=== PATIENT | female | born 1950 | race Caucasian/White ===

== ENCOUNTER 2020-03-01 03:55 | Emergency (ER) | payer MEDICARE, BC ==
[2020-03-01] MEDS ORDERED: Ondansetron 4 MG/2 ML SDV IVPUSH STA ×2 (04:25→06:15)
[2020-03-01] MEDS ORDERED: Morphine 4 MG/ML VIAL IVPUSH ONE (04:25)
[2020-03-01] MEDS ORDERED: Lactated Ringers 1,000 ML IV ONE (04:25)
[2020-03-01] MEDS ORDERED: HYDROmorphone 1 MG/ML Syringe IVPUSH ONE ×2 (04:41→06:15)
--- NOTE | 2020-03-01 04:41 | EDM.PDOC ---
ED HPI GENERAL MEDICAL PROBLEM - General Chief Complaint: Abdominal Pain Stated Complaint: Abdominal pain Time Seen by Provider: 03/01/20 04:38 Source of Information: Reports: Patient History Limitations: Reports: No Limitations - History of Present Illness INITIAL COMMENTS - FREE TEXT/NARRATIVE: This patient is a 69 year old female that presents to the ER. Patient reports that at about 6pm last night after supper, she started having lower abdominal pain all acrose the lower abdomen. She reports the pain radiated into her lower back. Patient reports the pain has been a constant cramping feeling, like she is constipated. She reports though that she never gets constipated. She reports that since last night, she has vomited a few times. She reports having a couple of bowel movements, but not diarrhea. She reports though she has not had any gas. She reports she normally has a lot of gas since starting her Metformin in August. Onset: Sudden Onset Date: 02/29/20 Onset Time: 18:00 Location: Reports: Abdomen, Back Severity: Severe Improves with: Reports: None Worsens with: Reports: None Associated Symptoms: Reports: Headaches (yesterday, but resolved. ), Nausea/Vomiting. Denies: Confusion, Chest Pain, Cough, cough w sputum, Diaphoresis, Fever/Chills, Loss of Appetite, Malaise, Rash, Seizure, Shortness of Breath, Syncope, Weakness Treatments [employer]: Reports: Acetaminophen, NSAIDS Abdomen Pain Score (Numeric/FACES): 9 - Related Data Allergies Allergy/AdvReac Type Severity Reaction Status Date / Time erythromycin base Allergy Nausea and Verified 03/01/20 04:13 [Erythromycin Base] Vomiting sulfamethoxazole Allergy Cannot Verified 03/01/20 04:13 [From Bactrim] Remember trimethoprim [From Bactrim] Allergy Cannot Verified 03/01/20 04:13 Remember Home Meds: Home Meds Aspirin [Low Dose Aspirin EC] 81 mg PO BEDTIME 09/02/13 [History] Calcium Carb, Citrate/Vit D3 [Calcium + D3 ER Tablet] 1 each PO DAILY 09/02/13 [History] Cholecalciferol (Vitamin D3) [Vitamin D3] 2,000 unit PO DAILY 09/02/13 [History] Glucosam/Chondr/Collagn/Hyalur [Glucosamine & Chondroitin Cap] 1 each PO DAILY 09/02/13 [History] Lisinopril/Hydrochlorothiazide [Lisinopril-Hctz 20-12.5 mg Tab] 0.5 each PO DAILY 09/02/13 [History] Magnesium 200 mg PO DAILY 09/02/13 [History] Metoprolol Succinate [Toprol XL 100mg] 100 mg PO DAILY 09/02/13 [History] Multivitamin [Daily Vitamin] 1 each PO DAILY 09/02/13 [History] Ubidecarenone [Co Q-10] 200 mg PO DAILY 09/02/13 [History] atorvaSTATin Calcium [Atorvastatin Calcium] 10 mg PO DAILY 09/02/13 [History] metFORMIN HCl [Metformin HCl] 500 mg PO DAILY 03/01/20 [History] Past Medical History Cardiovascular History: Reports: High Cholesterol, Hypertension - Past Surgical History Respiratory Surgical History: Reports: Lung Resection Female Surgical History: Reports: Hysterectomy Social & Family History - Tobacco Use Smoking Status *Q: Never Smoker - Caffeine Use Caffeine Use: Reports: Coffee ED ROS GENERAL - Review of Systems Review Of Systems: See Below Constitutional: Denies: Fever, Chills, Malaise, Weakness, Fatigue HEENT: Reports: No Symptoms. Denies: Ear Pain, Rhinitis, Sinus Problem, Throat Pain, Vertigo Respiratory: Reports: No Symptoms. Denies: Shortness of Breath, Wheezing, Pleuritic Chest Pain, Cough, Sputum Cardiovascular: Reports: No Symptoms. Denies: Chest Pain, Dyspnea on Exertion, Edema, Lightheadedness, Palpitations, Syncope Endocrine: Reports: No Symptoms GI/Abdominal: Reports: Abdominal Pain (with radiation into lower back), Distension, Nausea, Vomiting. Denies: Black Stool, Bloody Stool, Constipation, Diarrhea, Flatus : Reports: No Symptoms. Denies: Discharge, Dysuria, Flank Pain, Frequency, Hematuria, Incontinence, Pain, Urgency, Urinary Retention Musculoskeletal: Reports: No Symptoms Skin: Reports: No Symptoms Neurological: Reports: Headache (yesterday, but now resolved). Denies: Confusion, Dizziness, Numbness, Pre-Existing Deficit, Seizure, Syncope, Tingling, Tremors, Trouble Speaking, Difficulty Walking, Weakness, Gait Disturbance Psychiatric: Reports: No Symptoms Hematologic/Lymphatic: Reports: No Symptoms Immunologic: Reports: No Symptoms ED EXAM, GI/ABD - Physical Exam Exam: See Below Exam Limited By: No Limitations General Appearance: Alert, WD/WN, No Apparent Distress, Anxious, Other (in pain) Eyes: Bilateral: Normal Appearance Ears: Normal External Exam, Normal Canal, Hearing Grossly Normal, Normal TMs Nose: Normal Inspection, Normal Mucosa, No Blood Throat/Mouth: Normal Inspection, Normal Lips, Normal Teeth, Normal Gums, Normal Oropharynx, Normal Voice, No Airway Compromise Head: Atraumatic, Normocephalic Neck: Normal Inspection, Supple, Non-Tender, Full Range of Motion Respiratory/Chest: No Respiratory Distress, Lungs Clear, Normal Breath Sounds, No Accessory Muscle Use, Chest Non-Tender Cardiovascular: Normal Peripheral Pulses, Regular Rate, Rhythm, No Edema, No Gallop, No JVD, No Murmur, No Rub GI/Abdominal Exam: Distended, Tender (Diffuse. More tenderness RLQ, LLQ. ), Abnormal Bowel Sounds (Hypoactive RLQ, LLQ. ) Back Exam: Normal Inspection, Full Range of Motion. No: CVA Tenderness (L), CVA Tenderness (R) Extremities: Normal Inspection, Normal Range of Motion, Non-Tender, No Pedal Edema, Normal Capillary Refill Neurological: Alert, Oriented, Normal Cognition Psychiatric: Anxious Skin Exam: Warm, Dry, Intact, Normal Color, No Rash Lymphatic: No Adenopathy EKG INTERPRETATION EKG Date: 03/01/20 Time: 04:00 Rhythm: NSR Rate (Beats/Min): 91 [place]: Normal P-Wave: Present QRS: Normal ST-T: Normal QT: Prolonged Comparison: No Change (from 11/05) Course - Vital Signs Last Recorded V/S: Last Vital Signs Temp 98.1 F 03/01/20 04:09 Pulse 88 03/01/20 04:52 Resp 20 03/01/20 04:27 BP 131/79 03/01/20 04:52 Pulse Ox 96 03/01/20 04:27 - Orders/Labs/Meds Orders: Active Orders 24 hr Category Date Time Status EKG Documentation Completion [RC] STAT Care 03/01/20 04:00 Active Abdomen Pelvis w Cont [CT] Stat Exams 03/01/20 04:38 Taken CORONAVIRUS COVID-19 RAPID [MOLEC] Stat Lab 03/01/20 06:06 Ordered Labs: Laboratory Tests 03/01/20 03/01/20 03/01/20 Range/Units 04:10 04:15 04:15 WBC 4.6 L (5.0-10.0) 10^3/uL RBC 4.67 (4.00-5.50) 10^6/uL Hgb 14.4 (12.0-16.0) g/dL Hct 42.1 (37.0-47.0) % MCV 90.1 (82.0-94.0) fL MCH 30.8 (27.0-32.0) pg MCHC 34.2 (33.0-38.0) g/dL RDW Coeff of Loli 12.5 (11.0-15.0) % Plt Count 250 (150-400) 10^3/uL Neut % (Auto) 64.0 (35-85) % Lymph % (Auto) 31.9 (10-55) % [place] % (Auto) 3.5 (0-16) % Eos % (Auto) 0.4 (0-5) % Baso % (Auto) 0.2 (0-3) % Neut # (Auto) 2.95 (1.80-7.00) 10^3/uL Lymph # (Auto) 1.47 (1.00-4.80) 10^3/uL [place] # (Auto) 0.16 (0.00-0.80) 10^3/uL Eos # (Auto) 0.02 (0.00-0.45) 10^3/uL Baso # (Auto) 0.01 10^3/uL Sodium 137 (136-145) mEq/L Potassium 3.9 (3.5-5.0) mEq/L Chloride 100 (98-106) mEq/L Carbon Dioxide 25 (21-32) mmol/L BUN 20 H (7-18) mg/dL Creatinine 1.1 H (0.6-1.0) mg/dL Est Cr Clr Drug Dosing 44.05 mL/min Estimated GFR (MDRD) 49 L (>=60) mL/min Glucose 178 H D (75-99) mg/dL Lactic Acid (0.4-2.0) mmol/L Calcium 9.6 (8.4-10.1) mg/dL Total Bilirubin 0.9 (0.0-1.0) mg/dL AST 31 (15-37) U/L ALT 37 (12-78) U/L Alkaline Phosphatase 127 H (46-116) U/L C-Reactive Protein 2.1 H (0.2-0.8) mg/dL Total Protein 7.4 (6.4-8.2) g/dL Albumin 4.0 (3.4-5.0) g/dL Amylase 26 (25-115) U/L Lipase 76 (73-393) U/L Urine Color Yellow (YELLOW) Urine Appearance Clear (CLEAR) Urine pH 7.0 (4.5-8.0) Ur Specific [place] 1.025 H (1.003-1.020) Urine Protein Negative (NEGATIVE) mg/dL Urine Glucose (UA) Negative (NEGATIVE) mg/dL Urine Ketones Trace H (NEGATIVE) mg/dL Urine Occult Blood Negative (NEGATIVE) Urine Nitrite Negative (NEGATIVE) Urine Bilirubin Negative (NEGATIVE) Urine Urobilinogen 0.2 (0.2-1.0) EU/dL Ur Leukocyte Esterase Negative (NEGATIVE) 03/01/20 Range/Units 04:15 WBC (5.0-10.0) 10^3/uL RBC (4.00-5.50) 10^6/uL Hgb (12.0-16.0) g/dL Hct (37.0-47.0) % MCV (82.0-94.0) fL MCH (27.0-32.0) pg MCHC (33.0-38.0) g/dL RDW Coeff of Loli (11.0-15.0) % Plt Count (150-400) 10^3/uL Neut % (Auto) (35-85) % Lymph % (Auto) (10-55) % [place] % (Auto) (0-16) % Eos % (Auto) (0-5) % Baso % (Auto) (0-3) % Neut # (Auto) (1.80-7.00) 10^3/uL Lymph # (Auto) (1.00-4.80) 10^3/uL [place] # (Auto) (0.00-0.80) 10^3/uL Eos # (Auto) (0.00-0.45) 10^3/uL Baso # (Auto) 10^3/uL Sodium (136-145) mEq/L Potassium (3.5-5.0) mEq/L Chloride (98-106) mEq/L Carbon Dioxide (21-32) mmol/L BUN (7-18) mg/dL Creatinine (0.6-1.0) mg/dL Est Cr Clr Drug Dosing mL/min Estimated GFR (MDRD) (>=60) mL/min Glucose (75-99) mg/dL Lactic Acid 2.7 H (0.4-2.0) mmol/L Calcium (8.4-10.1) mg/dL Total Bilirubin (0.0-1.0) mg/dL AST (15-37) U/L ALT (12-78) U/L Alkaline Phosphatase (46-116) U/L C-Reactive Protein (0.2-0.8) mg/dL Total Protein (6.4-8.2) g/dL Albumin (3.4-5.0) g/dL Amylase (25-115) U/L Lipase (73-393) U/L Urine Color (YELLOW) Urine Appearance (CLEAR) Urine pH (4.5-8.0) Ur Specific [place] (1.003-1.020) Urine Protein (NEGATIVE) mg/dL Urine Glucose (UA) (NEGATIVE) mg/dL Urine Ketones (NEGATIVE) mg/dL Urine Occult Blood (NEGATIVE) Urine Nitrite (NEGATIVE) Urine Bilirubin (NEGATIVE) Urine Urobilinogen (0.2-1.0) EU/dL Ur Leukocyte Esterase (NEGATIVE) Meds: Medications Discontinued Medications Generic Name Dose Route Start Last Admin Trade Name Freq PRN Reason Stop Dose Admin Hydromorphone HCl 1 mg 03/01/20 04:41 03/01/20 04:46 Dilaudid IVPUSH 03/01/20 04:42 1 mg ONETIME ONE Administration Hydromorphone HCl 1 mg 03/01/20 06:15 Dilaudid IVPUSH 03/01/20 06:16 ONETIME ONE Lactated Ringer's 1,000 mls @ 999 mls/hr 03/01/20 04:25 03/01/20 04:33 Ringers, Lactated IV 03/01/20 05:25 999 mls/hr .BOLUS ONE Administration Iopamidol 100 ml 03/01/20 04:57 03/01/20 05:22 Isovue-370 (76%) IVPUSH 03/01/20 04:58 100 ml ONETIME ONE Administration Morphine Sulfate 4 mg 03/01/20 04:25 03/01/20 04:32 Morphine IVPUSH 03/01/20 04:26 4 mg ONETIME ONE Administration Ondansetron HCl 4 mg 03/01/20 04:25 03/01/20 04:32 Zofran IVPUSH 03/01/20 04:26 4 mg STAT STA Administration Ondansetron HCl 4 mg 03/01/20 06:15 Zofran IVPUSH 03/01/20 06:16 NOW STA - Radiology Interpretation Free Text/Narrative:: Abd/Pelvis CT: Acute appendicitis. No abscess. CT Results Date: 03/01/20 CT Results Time: 05:55 - Re-Assessments/Exams Free Text/Narrative Re-Assessment/Exam: 03/01/20 04:45 Patient reports the Morphine did not help her pain. Ordered Dilaudid. 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 Patient was told to start fiber twice a day. Patient reports that about 4-5 days ago she felt she had been having to loose stools, so she decreased her dosing to once a day. 03/01/20 06:08 I spoke to the patient. She would like to go to [facility]. I then called and spoke to Dr. Omer general surgeon. He has accepted the patient. Will transfer. 03/01/20 06:10 Patient explained the transfer and process. Patient is moaning in pain now, will give more pain medication and Zofran. Departure - Departure Time of Disposition: 06:12 Disposition: DC/Tfer to Acute Hospital 02 Condition: Serious Clinical Impression: Appendicitis Qualifiers: Appendicitis type: acute appendicitis Acute appendicitis type: unspecified acute appendicitis type Qualified Code(s): K35.80 - Unspecified acute appendicitis - Discharge Information *PRESCRIPTION DRUG MONITORING PROGRAM REVIEWED*: Not Applicable *COPY OF PRESCRIPTION DRUG MONITORING REPORT IN PATIENT ABDI: Not Applicable Referrals: Luis Sevilla MD [Primary Care Provider] - Forms: ED Department Discharge Sepsis Event Note (ED) - Evaluation Sepsis Screening Result: No Definite Risk - Focused Exam Vital Signs: Vital Signs Temp Pulse Resp BP Pulse Ox 03/01/20 04:52 88 131/79 03/01/20 04:27 92 20 121/67 96 03/01/20 04:09 98.1 F 95 20 102/66 98 - My Orders Last 24 Hours: My Active Orders 03/01/20 04:00 EKG Documentation Completion [RC] STAT 03/01/20 04:38 Abdomen Pelvis w Cont [CT] Stat 03/01/20 06:06 CORONAVIRUS COVID-19 RAPID [MOLEC] Stat - Assessment/Plan Last 24 Hours: My Active Orders 03/01/20 04:00 EKG Documentation Completion [RC] STAT 03/01/20 04:38 Abdomen Pelvis w Cont [CT] Stat 03/01/20 06:06 CORONAVIRUS COVID-19 RAPID [MOLEC] Stat Plan: PLEASE SEE RN NOTE FOR [facility] Patient being transferred to [facility]. Patient explained and agrees with risk vs benefits of transfer. She will be transferred via ground ambulance. The risk of transfer are mvc, , worsening of pain. The risks of staying in [place] is , worsening of condition, infection. The benefits of transfer are higher level of care, general surgeon. The benefits of staying in [place] is close to home.
[2020-03-01 04:52] VITALS: BP 131/79; PULSE 88
[2020-03-01] MEDS ORDERED: Iopamidol 755 Mg/ML 100 ML Bottle IVPUSH ONE (04:57)
[2020-03-01] MEDS ORDERED: Ondansetron 4 MG/2 ML SDV ONE (09:01)
[2020-03-01] MEDS ORDERED: HYDROmorphone 1 MG/ML Syringe ONE (09:01)
== END 2020-03-01 08:58 ==
LOC: CC.ED 03:55
DX: K35.80 Unspecified acute appendicitis (principal); E78.00 Pure hypercholesterolemia, unspecified; I10 Essential (primary) hypertension; Z79.899 Other long term (current) drug therapy; Z20.828 Contact with and (suspected) exposure to other viral communicable diseases; Z88.1 Allergy status to other antibiotic agents; Z88.2 Allergy status to sulfonamides; Z79.82 Long term (current) use of aspirin; Z79.84 Long term (current) use of oral hypoglycemic drugs
CPT/HCPCS: 36415; 74177; 80053; 81003; 82150; 83605; 83690; 85025; 86140; 93005; 96361; 96374; 96375; 96376; 99284; 99285; J1170; J2270; J2405; J7120; Q9967; U0002

== ENCOUNTER 2020-03-06 12:37 | Inpatient (IN) | payer MEDICARE, BC ==
[2020-03-06] MEDS ORDERED: Metoclopramide 10 MG/2 ML SDV IVPUSH ONE (15:06)
[2020-03-06] MEDS ORDERED: Docusate Sodium 100 MG Cap PO PRN (15:13)
[2020-03-06] MEDS: Pantoprazole 40 MG Vial IVPUSH SCH (15:57)
[2020-03-06] MEDS: Sodium Chloride 0.9% 1,000 ML IV SCH (15:57)
[2020-03-06 16:08] LABS: CHLORIDE,CL 100 mEq/L (98-106); SODIUM,NA 139 mEq/L (136-145)
[2020-03-06] MEDS: Enoxaparin 40 MG/0.4 ML Syringe SUBCUT SCH (18:07)
[2020-03-06] MEDS: Aspirin 81 MG Tab.EC PO SCH (19:52)
[2020-03-06] MEDS: Metoclopramide 10 MG/2 ML SDV IVPUSH PRN (21:13)
[2020-03-07] MEDS: Sodium Chloride 0.9% 1,000 ML IV SCH ×3 (00:21→18:22)
[2020-03-07] MEDS: Metoclopramide 10 MG/2 ML SDV IVPUSH PRN ×3 (03:49→18:22)
[2020-03-07] MEDS ORDERED: Amoxicillin/Clavulanate K 875-125 MG Tab PO SCH (08:00)
[2020-03-07] MEDS: Docusate Sodium 100 MG Cap PO SCH ×2 (08:12→19:35)
[2020-03-07] MEDS: Amoxicillin/Clavulanate K 875-125 MG Tab PO SCH ×2 (08:58→19:37)
[2020-03-07] MEDS: LISINOPRIL PO SCH (09:35)
[2020-03-07] MEDS: Metoprolol Succinate 100 MG Tab.ER**OWN MED PO SCH (09:35)
[2020-03-07] MEDS: HYDROCHLOROTHIAZIDE PO SCH (09:35)
[2020-03-07] MEDS ORDERED: metFORMIN 500 MG Tab PO SCH (09:45)
[2020-03-07] MEDS ORDERED: atorvaSTATin 10 MG Tab PO SCH (09:45)
[2020-03-07] MEDS: metFORMIN 500 MG Tab**OWN MED PO SCH (10:13)
[2020-03-07] MEDS ORDERED: atorvaSTATin 10 MG Tab**OWN MED PO SCH (10:15)
--- NOTE | 2020-03-07 10:56 | PN ---
DATE: 03/07/2020 S: Katiuska is a recent admission for ileus. She had a recent emergent laparoscopic appendectomy for a perforated appendix. She was in the hospital 5 days, then home I believe for 24 hours, and just cannot pass stools, having a lot of nausea, presented to our facility for that. We admitted her for ileus, and since admission, she has been afebrile. Her nausea has been markedly improved. She is not having any stools as of yet. O: GENERAL: On physical exam today, she is pleasant and cooperative. NECK: Supple. Veins flat. LUNGS: Clear. CARDIAC: Tones are regular. ABDOMEN: Appears soft, nondistended. There are bowel sounds in all quadrants, albeit hypoactive. No obvious tenderness to palpation throughout. LABORATORY DATA: Lab work from yesterday was reviewed. White count was elevated. Her electrolytes and renal functions are fine. She does have elevated LFTs with AST at 96, ALT 142, and alkaline phosphatase 551. ASSESSMENT: 1. POSTOPERATIVE ILEUS. 2. STATUS POST PERFORATED APPENDIX. 3. ELEVATED LIVER FUNCTION TESTS. P: We will get a right upper quadrant ultrasound today. She is on Augmentin, which she was sent home with from the hospital. Continue IV fluids, IV Protonix, and the Reglan has helped her nausea at this point. GLENN/BRYNN /[id number]
[2020-03-07 13:04] LABS: CHLORIDE,CL 103 mEq/L (98-106); SODIUM,NA 142 mEq/L (136-145)
[2020-03-07] MEDS: Enoxaparin 40 MG/0.4 ML Syringe SUBCUT SCH (16:18)
[2020-03-07] MEDS: Pantoprazole 40 MG Vial IVPUSH SCH (16:18)
[2020-03-07] MEDS: Aspirin 81 MG Tab.EC PO SCH (19:35)
[2020-03-08] MEDS: NS + KCl 20mEq/L 1,000 ML IV SCH ×3 (00:34→22:32)
[2020-03-08] MEDS: Metoclopramide 10 MG/2 ML SDV IVPUSH PRN ×4 (00:34→18:40)
[2020-03-08] MEDS: Docusate Sodium 100 MG Cap PO SCH ×2 (07:38→20:22)
[2020-03-08 07:39] LABS: CHLORIDE,CL 105 mEq/L (98-106); SODIUM,NA 143 mEq/L (136-145)
[2020-03-08] MEDS: Amoxicillin/Clavulanate K 875-125 MG Tab PO SCH ×2 (07:39→20:22)
[2020-03-08] MEDS: metFORMIN 500 MG Tab**OWN MED PO SCH (07:39)
[2020-03-08] MEDS: HYDROCHLOROTHIAZIDE PO SCH (07:40)
[2020-03-08] MEDS: Metoprolol Succinate 100 MG Tab.ER**OWN MED PO SCH (07:40)
[2020-03-08] MEDS: LISINOPRIL PO SCH (07:40)
--- NOTE | 2020-03-08 10:05 | PCM.PN ---
- General Info Date of Service: 03/08/20 Admission Dx/Problem (Free Text): abd pain, ileus, elevated LFT Functional Status: Reports: Pain Controlled, Tolerating Diet, Ambulating, Urinating - Review of Systems General: Reports: No Symptoms. Denies: Fever, Weakness HEENT: Reports: No Symptoms Pulmonary: Reports: No Symptoms. Denies: Shortness of Breath, Cough Cardiovascular: Reports: No Symptoms Gastrointestinal: Reports: Nausea. Denies: Abdominal Pain, Constipation, Diarrhea, Vomiting Genitourinary: Reports: No Symptoms Musculoskeletal: Reports: No Symptoms Skin: Reports: No Symptoms Neurological: Reports: No Symptoms Psychiatric: Reports: No Symptoms - Patient Data Vitals - Most Recent: Last Vital Signs Temp 37.1 C 03/08/20 07:33 Pulse 69 03/08/20 07:40 Resp 18 03/08/20 07:33 BP 147/58 H 03/08/20 07:40 Pulse Ox 100 03/08/20 07:33 Weight - Most Recent: 81.012 kg I&O - Last 24 Hours: Intake & Output 03/07/20 03/08/20 03/08/20 22:59 06:59 14:59 Intake Total 2820 565 Output Total 2600 2400 Balance 220 -1835 Lab Results Last 24 Hours: Laboratory Results - last 24 hr 03/07/20 03/07/20 03/08/20 Range/Units 12:44 12:44 06:55 WBC 15.6 H 14.0 H (5.0-10.0) 10^3/uL RBC 4.21 4.12 (4.00-5.50) 10^6/uL Hgb 12.7 12.4 (12.0-16.0) g/dL Hct 37.7 36.9 L (37.0-47.0) % MCV 89.5 89.6 (82.0-94.0) fL MCH 30.2 30.1 (27.0-32.0) pg MCHC 33.7 33.6 (33.0-38.0) g/dL RDW Coeff of Loli 13.1 13.2 (11.0-15.0) % Plt Count 330 341 (150-400) 10^3/uL Neut % (Auto) 61.1 (35-85) % Lymph % (Auto) 25.7 (10-55) % [place] % (Auto) 11.6 (0-16) % Eos % (Auto) 1.3 (0-5) % Baso % (Auto) 0.3 (0-3) % Neut # (Auto) 9.56 H (1.80-7.00) 10^3/uL Lymph # (Auto) 4.02 (1.00-4.80) 10^3/uL [place] # (Auto) 1.81 H (0.00-0.80) 10^3/uL Eos # (Auto) 0.20 (0.00-0.45) 10^3/uL Baso # (Auto) 0.04 10^3/uL Add Manual Diff Yes Neutrophils % (Manual) 44 (35-85) % Lymphocytes % (Manual) 49 (21-55) % Monocytes % (Manual) 5 (2-12) % Eosinophils % (Manual) 2 (0-5) % Absolute Neutrophils 6.16 (1.80-7.00) 10^3/uL Lymphocytes # (Manual) 6.86 H (1.00-4.80) 10^3/uL Monocytes # (Manual) 0.70 (0.00-0.80) 10^3/uL Eosinophils # (Manual) 0.28 (0.00-0.45) 10^3/uL Sodium 142 (136-145) mEq/L Potassium 3.2 L (3.5-5.0) mEq/L Chloride 103 (98-106) mEq/L Carbon Dioxide 27 (21-32) mmol/L BUN 7 (7-18) mg/dL Creatinine 0.8 (0.6-1.0) mg/dL Est Cr Clr Drug Dosing 60.56 mL/min Estimated GFR (MDRD) > 60 (>=60) mL/min Glucose 112 H (75-99) mg/dL POC Glucose (75-105) mg/dl Calcium 8.8 (8.4-10.1) mg/dL Magnesium (1.8-2.4) mg/dL Total Bilirubin 0.4 (0.0-1.0) mg/dL AST 76 H (15-37) U/L ALT 140 H (12-78) U/L Alkaline Phosphatase 521 H (46-116) U/L C-Reactive Protein 1.8 H (0.2-0.8) mg/dL Total Protein 7.2 (6.4-8.2) g/dL Albumin 3.1 L (3.4-5.0) g/dL 03/08/20 03/08/20 Range/Units 06:55 07:38 WBC (5.0-10.0) 10^3/uL RBC (4.00-5.50) 10^6/uL Hgb (12.0-16.0) g/dL Hct (37.0-47.0) % MCV (82.0-94.0) fL MCH (27.0-32.0) pg MCHC (33.0-38.0) g/dL RDW Coeff of Loli (11.0-15.0) % Plt Count (150-400) 10^3/uL Neut % (Auto) (35-85) % Lymph % (Auto) (10-55) % [place] % (Auto) (0-16) % Eos % (Auto) (0-5) % Baso % (Auto) (0-3) % Neut # (Auto) (1.80-7.00) 10^3/uL Lymph # (Auto) (1.00-4.80) 10^3/uL [place] # (Auto) (0.00-0.80) 10^3/uL Eos # (Auto) (0.00-0.45) 10^3/uL Baso # (Auto) 10^3/uL Add Manual Diff Neutrophils % (Manual) (35-85) % Lymphocytes % (Manual) (21-55) % Monocytes % (Manual) (2-12) % Eosinophils % (Manual) (0-5) % Absolute Neutrophils (1.80-7.00) 10^3/uL Lymphocytes # (Manual) (1.00-4.80) 10^3/uL Monocytes # (Manual) (0.00-0.80) 10^3/uL Eosinophils # (Manual) (0.00-0.45) 10^3/uL Sodium 143 (136-145) mEq/L Potassium 3.0 L (3.5-5.0) mEq/L Chloride 105 (98-106) mEq/L Carbon Dioxide 26 (21-32) mmol/L BUN 5 L (7-18) mg/dL Creatinine 0.7 (0.6-1.0) mg/dL Est Cr Clr Drug Dosing 69.21 mL/min Estimated GFR (MDRD) > 60 (>=60) mL/min Glucose 97 (75-99) mg/dL POC Glucose 95 (75-105) mg/dl Calcium 8.4 (8.4-10.1) mg/dL Magnesium 2.0 (1.8-2.4) mg/dL Total Bilirubin 0.5 (0.0-1.0) mg/dL AST 62 H (15-37) U/L ALT 125 H (12-78) U/L Alkaline Phosphatase 434 H (46-116) U/L C-Reactive Protein 1.0 H (0.2-0.8) mg/dL Total Protein 7.0 (6.4-8.2) g/dL Albumin 3.0 L (3.4-5.0) g/dL Med Orders - Current: Current Medications Amoxicillin/Clavulanate Potassium (Augmentin 875 Mg/125 Mg) 1 tab PO BID [facility] Stop: 03/10/20 23:59 Last Admin: 03/08/20 07:39 Dose: 1 tab Documented by: Aspirin (Halfprin) 81 mg PO BEDTIME [facility] Last Admin: 03/07/20 19:35 Dose: 81 mg Documented by: Docusate Sodium (Colace) 100 mg PO BID [facility] Last Admin: 03/08/20 07:38 Dose: 100 mg Documented by: Enoxaparin Sodium (Lovenox) 40 mg SUBCUT Q24H [facility] Last Admin: 03/07/20 16:18 Dose: 40 mg Documented by: Potassium Chloride/Sodium Chloride (Normal Saline With 20 Meq Kcl) 1,000 mls @ 100 mls/hr IV ASDIRECTED [facility] Last Admin: 03/08/20 00:34 Dose: 100 mls/hr Documented by: Metformin HCl (Glucophage) 500 mg PO DAILY [facility] Last Admin: 03/08/20 07:39 Dose: 500 mg Documented by: Metoclopramide HCl (Reglan) 10 mg IVPUSH Q6H PRN PRN Reason: Nausea Last Admin: 03/08/20 06:30 Dose: 10 mg Documented by: Metoprolol Succinate (Toprol Xl) 100 mg PO DAILY [facility] Last Admin: 03/08/20 07:40 Dose: 100 mg Documented by: Lisinopril/Hydrochlorothiazide 20-12.5 MgOwn Med* * 0.5 each PO DAILY [facility] Last Admin: 03/08/20 07:40 Dose: 0.5 each Documented by: Pantoprazole Sodium (Protonix Iv) 40 mg IVPUSH Q24H [facility] Last Admin: 03/07/20 16:18 Dose: 40 mg Documented by: Discontinued Medications Amoxicillin/Clavulanate Potassium (Augmentin 875 Mg/125 Mg) 1 tab PO BID [facility] Last Admin: 03/07/20 08:54 Dose: Not Given Documented by: Atorvastatin Calcium (Lipitor) 10 mg PO DAILY [facility] Last Admin: 03/07/20 10:13 Dose: Not Given Documented by: Atorvastatin Calcium (Lipitor) 10 mg PO 03/07/20 [facility] Stop: 03/07/20 10:16 Last Admin: 03/07/20 10:13 Dose: 10 mg Documented by: Docusate Sodium (Colace) 100 mg PO BID PRN PRN Reason: Constipation Sodium Chloride (Normal Saline) 1,000 mls @ 125 mls/hr IV ASDIRECTED [facility] Last Admin: 03/07/20 18:22 Dose: 125 mls/hr Documented by: Metformin HCl (Glucophage) 500 mg PO DAILY [facility] Last Admin: 03/07/20 10:13 Dose: Not Given Documented by: Metoclopramide HCl (Reglan) 10 mg IVPUSH ONETIME ONE Stop: 03/06/20 15:07 Last Admin: 03/06/20 15:11 Dose: 10 mg Documented by: - Exam General: Alert, Oriented, Cooperative, No Acute Distress Neck: Supple Lungs: Clear to Auscultation, Normal Respiratory Effort Cardiovascular: Regular Rate, Regular Rhythm GI/Abdominal Exam: Normal Bowel Sounds, Soft, Non-Tender, No Organomegaly, No Distention, No Abnormal Bruit Back Exam: Normal Inspection, Full Range of Motion Extremities: Normal Inspection, Normal Range of Motion, Non-Tender, Normal Capillary Refill Peripheral Pulses: 2+: Radial (L) Skin: Warm, Dry, Intact Neurological: No New Focal Deficit Psy/Mental Status: Alert, Normal Affect, Normal Mood Sepsis Event Note - Evaluation Sepsis Screening Result: No Definite Risk - Focused Exam Vital Signs: Vital Signs Temp Pulse Pulse Resp BP BP Pulse Ox 03/08/20 07:40 69 147/58 H 03/08/20 07:33 37.1 C 69 18 147/58 H 100 03/08/20 04:00 37.1 C 70 16 134/89 97 03/07/20 23:59 37.1 C 70 16 155/59 H 98 Date Exam was Performed: 03/08/20 Time Exam was Performed: 09:59 - Problem List & Annotations (1) Abdominal pain SNOMED Code(s): 66497631 Code(s): R10.9 - UNSPECIFIED ABDOMINAL PAIN Status: Acute Priority: High Current Visit: Yes Qualifiers: Abdominal location: generalized Qualified Code(s): R10.84 - Generalized abdominal pain (2) Ileus SNOMED Code(s): 721682330 Code(s): K56.7 - ILEUS, UNSPECIFIED Status: Acute Priority: Medium Current Visit: Yes (3) Elevated LFTs SNOMED Code(s): 197881283, 953895446 Code(s): R79.89 - OTHER SPECIFIED ABNORMAL FINDINGS OF BLOOD CHEMISTRY Status: Acute Priority: Medium Current Visit: Yes - Problem List Review Problem List Initiated/Reviewed/Updated: Yes - Plan Plan:: will increase diet and give laxative if needed, did have a small formed BM this am, will continue current tx plan and plan dc in am if improving
--- NOTE | 2020-03-08 12:31 | PCM.HP.2 ---
H&P History of Present Illness - General Date of Service: 03/08/20 Admit Problem/Dx: abd pain, ileus, elevated LFT Source of Information: Patient History Limitations: Reports: No Limitations - History of Present Illness Initial Comments - Free Text/Narative: abd pain and distension with nausea, was admitted on , advised is not much better, did have a small formed stool this am, will change from observation to admission. Onset of Symptoms: Reports: Gradual Duration of Symptoms: Reports: Day(s): Location: Reports: Abdomen Severity: Mild Improves with: Reports: None Worsens with: Reports: None Associated Symptoms: Reports: Nausea/Vomiting (nausea, no vomiting). Denies: Chest Pain, Cough, Fever/Chills, Shortness of Breath - Related Data Allergies/Adverse Reactions: Allergies Allergy/AdvReac Type Severity Reaction Status Date / Time erythromycin base Allergy Nausea and Verified 03/06/20 14:25 [Erythromycin Base] Vomiting sulfamethoxazole Allergy Cannot Verified 03/06/20 14:25 [From Bactrim] Remember trimethoprim [From Bactrim] Allergy Cannot Verified 03/06/20 14:25 Remember Home Medications: Home Meds Aspirin [Low Dose Aspirin EC] 81 mg PO BEDTIME 09/02/13 [History] Calcium Carb, Citrate/Vit D3 [Calcium + D3 ER Tablet] 1 each PO DAILY 09/02/13 [History] Cholecalciferol (Vitamin D3) [Vitamin D3] 2,000 unit PO DAILY 09/02/13 [History] Glucosam/Chondr/Collagn/Hyalur [Glucosamine & Chondroitin Cap] 1 each PO DAILY 09/02/13 [History] Lisinopril/Hydrochlorothiazide [Lisinopril-Hctz 20-12.5 mg Tab] 0.5 each PO DAILY 09/02/13 [History] Magnesium 200 mg PO DAILY 09/02/13 [History] Metoprolol Succinate [Toprol XL 100mg] 100 mg PO DAILY 09/02/13 [History] Multivitamin [Daily Vitamin] 1 each PO DAILY 09/02/13 [History] Ubidecarenone [Co Q-10] 200 mg PO DAILY 09/02/13 [History] atorvaSTATin Calcium [Atorvastatin Calcium] 10 mg PO DAILY 09/02/13 [History] metFORMIN HCl [Metformin HCl] 500 mg PO DAILY 03/01/20 [History] Amoxicillin/Clavulanate K [Augmentin 875-125 MG] 1 tab PO BID 03/06/20 [History] ondansetron HCL [Ondansetron HCl] 4 mg PO Q4H PRN 03/06/20 [History] Past Medical History HEENT History: Reports: Hard of Hearing Cardiovascular History: Reports: High Cholesterol, Hypertension Respiratory History: Reports: SOB, Other (See Below) Other Respiratory History: pulmonary nodule Genitourinary History: Reports: UTI, Recurrent, Other (See Below) Other Genitourinary History: nocturia [employer] History: Reports: , Other (See Below) Other OB/BYN History: ovarian mass Musculoskeletal History: Reports: Arthritis Psychiatric History: Reports: Anxiety, Depression Endocrine/Metabolic History: Reports: Multinodular Thyroid, Vitamin D Deficiency, Other (See Below) Other Endocrine/Metabolic History: prediabetic Dermatologic History: Reports: Other (See Below) Other Dermatologic History: inflammed seborrheic keratosis - Past Surgical History HEENT Surgical History: Reports: None Cardiovascular Surgical History: Reports: None Respiratory Surgical History: Reports: Lung Resection GI Surgical History: Reports: Appendectomy Female Surgical History: Reports: Hysterectomy Endocrine Surgical History: Reports: None Musculoskeletal Surgical History: Reports: None Oncologic Surgical History: Reports: Biopsy of Breast, Lobectomy Dermatological Surgical History: Reports: None Social & Family History - Family History Family Medical History: Noncontributory - Tobacco Use Smoking Status *Q: Never Smoker - Caffeine Use Caffeine Use: Reports: Coffee - Recreational Drug Use Recreational Drug Use: No H&P Review of Systems - Review of Systems: Review Of Systems: See Below General: Reports: No Symptoms. Denies: Fever, Chills, Weakness HEENT: Reports: No Symptoms Pulmonary: Reports: No Symptoms Cardiovascular: Reports: No Symptoms Gastrointestinal: Reports: Constipation, Distension, Nausea. Denies: Abdominal Pain, Vomiting Genitourinary: Reports: No Symptoms Musculoskeletal: Reports: No Symptoms. Denies: Neck Pain, Back Pain Skin: Reports: No Symptoms Psychiatric: Reports: No Symptoms Neurological: Reports: No Symptoms Exam - Exam Exam: See Below - Vital Signs Vital Signs: Last Vital Signs Temp 36.6 C 03/08/20 12:00 Pulse 89 03/08/20 12:00 Resp 18 03/08/20 12:00 BP 163/69 H 03/08/20 12:00 Pulse Ox 98 03/08/20 12:00 Weight: 81.012 kg - Exam General: Alert, Oriented, Cooperative Neck: Supple, Trachea Midline Lungs: Clear to Auscultation, Normal Respiratory Effort Cardiovascular: Regular Rate, Regular Rhythm GI/Abdominal Exam: Soft, Non-Tender, Distended Back Exam: Normal Inspection, Full Range of Motion. No: CVA Tenderness (L), CVA Tenderness (R) Extremities: Normal Inspection, Normal Range of Motion, Non-Tender, Normal Capillary Refill Peripheral Pulses: 2+: Radial (L) Skin: Warm, Dry, Intact Neuro Extensive - Mental Status: Alert, Oriented x3, Normal Mood/Affect, Normal Cognition, Memory Intact Neuro Extensive - Motor, Sensory, Reflexes: Normal Gait Psychiatric: Alert, Normal Affect, Normal Mood - Patient Data Lab Results Last 24 hrs: Laboratory Results - last 24 hr 03/07/20 03/07/20 03/08/20 Range/Units 12:44 12:44 06:55 WBC 15.6 H 14.0 H (5.0-10.0) 10^3/uL RBC 4.21 4.12 (4.00-5.50) 10^6/uL Hgb 12.7 12.4 (12.0-16.0) g/dL Hct 37.7 36.9 L (37.0-47.0) % MCV 89.5 89.6 (82.0-94.0) fL MCH 30.2 30.1 (27.0-32.0) pg MCHC 33.7 33.6 (33.0-38.0) g/dL RDW Coeff of Loli 13.1 13.2 (11.0-15.0) % Plt Count 330 341 (150-400) 10^3/uL Neut % (Auto) 61.1 (35-85) % Lymph % (Auto) 25.7 (10-55) % [place] % (Auto) 11.6 (0-16) % Eos % (Auto) 1.3 (0-5) % Baso % (Auto) 0.3 (0-3) % Neut # (Auto) 9.56 H (1.80-7.00) 10^3/uL Lymph # (Auto) 4.02 (1.00-4.80) 10^3/uL [place] # (Auto) 1.81 H (0.00-0.80) 10^3/uL Eos # (Auto) 0.20 (0.00-0.45) 10^3/uL Baso # (Auto) 0.04 10^3/uL Add Manual Diff Yes Neutrophils % (Manual) 44 (35-85) % Lymphocytes % (Manual) 49 (21-55) % Monocytes % (Manual) 5 (2-12) % Eosinophils % (Manual) 2 (0-5) % Absolute Neutrophils 6.16 (1.80-7.00) 10^3/uL Lymphocytes # (Manual) 6.86 H (1.00-4.80) 10^3/uL Monocytes # (Manual) 0.70 (0.00-0.80) 10^3/uL Eosinophils # (Manual) 0.28 (0.00-0.45) 10^3/uL Sodium 142 (136-145) mEq/L Potassium 3.2 L (3.5-5.0) mEq/L Chloride 103 (98-106) mEq/L Carbon Dioxide 27 (21-32) mmol/L BUN 7 (7-18) mg/dL Creatinine 0.8 (0.6-1.0) mg/dL Est Cr Clr Drug Dosing 60.56 mL/min Estimated GFR (MDRD) > 60 (>=60) mL/min Glucose 112 H (75-99) mg/dL POC Glucose (75-105) mg/dl Calcium 8.8 (8.4-10.1) mg/dL Magnesium (1.8-2.4) mg/dL Total Bilirubin 0.4 (0.0-1.0) mg/dL AST 76 H (15-37) U/L ALT 140 H (12-78) U/L Alkaline Phosphatase 521 H (46-116) U/L C-Reactive Protein 1.8 H (0.2-0.8) mg/dL Total Protein 7.2 (6.4-8.2) g/dL Albumin 3.1 L (3.4-5.0) g/dL 03/08/20 03/08/20 Range/Units 06:55 07:38 WBC (5.0-10.0) 10^3/uL RBC (4.00-5.50) 10^6/uL Hgb (12.0-16.0) g/dL Hct (37.0-47.0) % MCV (82.0-94.0) fL MCH (27.0-32.0) pg MCHC (33.0-38.0) g/dL RDW Coeff of Loli (11.0-15.0) % Plt Count (150-400) 10^3/uL Neut % (Auto) (35-85) % Lymph % (Auto) (10-55) % [place] % (Auto) (0-16) % Eos % (Auto) (0-5) % Baso % (Auto) (0-3) % Neut # (Auto) (1.80-7.00) 10^3/uL Lymph # (Auto) (1.00-4.80) 10^3/uL [place] # (Auto) (0.00-0.80) 10^3/uL Eos # (Auto) (0.00-0.45) 10^3/uL Baso # (Auto) 10^3/uL Add Manual Diff Neutrophils % (Manual) (35-85) % Lymphocytes % (Manual) (21-55) % Monocytes % (Manual) (2-12) % Eosinophils % (Manual) (0-5) % Absolute Neutrophils (1.80-7.00) 10^3/uL Lymphocytes # (Manual) (1.00-4.80) 10^3/uL Monocytes # (Manual) (0.00-0.80) 10^3/uL Eosinophils # (Manual) (0.00-0.45) 10^3/uL Sodium 143 (136-145) mEq/L Potassium 3.0 L (3.5-5.0) mEq/L Chloride 105 (98-106) mEq/L Carbon Dioxide 26 (21-32) mmol/L BUN 5 L (7-18) mg/dL Creatinine 0.7 (0.6-1.0) mg/dL Est Cr Clr Drug Dosing 69.21 mL/min Estimated GFR (MDRD) > 60 (>=60) mL/min Glucose 97 (75-99) mg/dL POC Glucose 95 (75-105) mg/dl Calcium 8.4 (8.4-10.1) mg/dL Magnesium 2.0 (1.8-2.4) mg/dL Total Bilirubin 0.5 (0.0-1.0) mg/dL AST 62 H (15-37) U/L ALT 125 H (12-78) U/L Alkaline Phosphatase 434 H (46-116) U/L C-Reactive Protein 1.0 H (0.2-0.8) mg/dL Total Protein 7.0 (6.4-8.2) g/dL Albumin 3.0 L (3.4-5.0) g/dL Result Diagrams: 03/08/20 06:55 03/08/20 06:55 Sepsis Event Note - Evaluation Sepsis Screening Result: No Definite Risk - Focused Exam Vital Signs: Vital Signs Temp Pulse Pulse Resp BP BP Pulse Ox 03/08/20 12:00 36.6 C 89 18 163/69 H 98 03/08/20 07:40 69 147/58 H 03/08/20 07:33 37.1 C 69 18 147/58 H 100 03/08/20 04:00 37.1 C 70 16 134/89 97 Date Exam was Performed: 03/08/20 Time Exam was Performed: 12:31 - Problem List (1) Abdominal pain SNOMED Code(s): 81213393 ICD Code: R10.9 - UNSPECIFIED ABDOMINAL PAIN Status: Acute Priority: High Current Visit: Yes Qualifiers: Abdominal location: generalized Qualified Code(s): R10.84 - Generalized abdominal pain (2) Ileus SNOMED Code(s): 606786151 ICD Code: K56.7 - ILEUS, UNSPECIFIED Status: Acute Priority: Medium Current Visit: Yes (3) Elevated LFTs SNOMED Code(s): 730205417, 697849195 ICD Code: R79.89 - OTHER SPECIFIED ABNORMAL FINDINGS OF BLOOD CHEMISTRY Status: Acute Priority: Medium Current Visit: Yes Problem List Initiated/Reviewed/Updated: Yes Orders Last 24hrs: Active Orders 24 hr Category Date Time Status Soft Diet [DIET] Diet 03/08/20 Lunch Active NS + KCl 20mEq/L [Normal Saline with 20 mEq KCl] 1,000 Med 03/07/20 20:15 A ctive ml IV ASDIRECTED Medication Orders Amoxicillin/Clavulanate Potassium (Augmentin 875 Mg/125 Mg) 1 tab PO BID FATIMAH Stop: 03/10/20 23:59 Last Admin: 03/08/20 07:39 Dose: 1 tab Documented by: Admin: 03/07/20 19:37 Dose: 1 tab Documented by: Admin: 03/07/20 08:58 Dose: 1 tab Documented by: SAMANTA Aspirin (Halfprin) 81 mg PO BEDTIME [facility] Last Admin: 03/07/20 19:35 Dose: 81 mg Documented by: Admin: 03/06/20 19:52 Dose: 81 mg Documented by: TIERRA Docusate Sodium (Colace) 100 mg PO BID [facility] Last Admin: 03/08/20 07:38 Dose: 100 mg Documented by: Admin: 03/07/20 19:35 Dose: 100 mg Documented by: Admin: 03/07/20 08:12 Dose: 100 mg Documented by: SAMANTA Enoxaparin Sodium (Lovenox) 40 mg SUBCUT Q24H [facility] Last Admin: 03/07/20 16:18 Dose: 40 mg Documented by: Admin: 03/06/20 18:07 Dose: 40 mg Documented by: PERFECTO Potassium Chloride/Sodium Chloride (Normal Saline With 20 Meq Kcl) 1,000 mls @ 100 mls/hr IV ASDIRECTED [facility] Last Admin: 03/08/20 10:44 Dose: 100 mls/hr Documented by: Infusion: 03/08/20 10:34 Dose: 100 mls/hr Documented by: Admin: 03/08/20 00:34 Dose: 100 mls/hr Documented by: JUNA C Metformin HCl (Glucophage) 500 mg PO DAILY [facility] Last Admin: 03/08/20 07:39 Dose: 500 mg Documented by: Admin: 03/07/20 10:13 Dose: 500 mg Documented by: SAMANTA Metoclopramide HCl (Reglan) 10 mg IVPUSH Q6H PRN PRN Reason: Nausea Last Admin: 03/08/20 06:30 Dose: 10 mg Documented by: Admin: 03/08/20 00:34 Dose: 10 mg Documented by: JUAN C Admin: 03/07/20 18:22 Dose: 10 mg Documented by: Admin: 03/07/20 11:50 Dose: 10 mg Documented by: Admin: 03/07/20 03:49 Dose: 10 mg Documented by: Admin: 03/06/20 21:13 Dose: 10 mg Documented by: TIERRA Metoprolol Succinate (Toprol Xl) 100 mg PO DAILY [facility] Last Admin: 03/08/20 07:40 Dose: 100 mg Documented by: Admin: 03/07/20 09:35 Dose: 100 mg Documented by: SAMANTA Lisinopril/Hydrochlorothiazide 20-12.5 MgOwn Med* * 0.5 each PO DAILY [facility] Last Admin: 03/08/20 07:40 Dose: 0.5 each Documented by: Admin: 03/07/20 09:35 Dose: 0.5 each Documented by: SAMANTA Pantoprazole Sodium (Protonix Iv) 40 mg IVPUSH Q24H [facility] Admin: 03/07/20 16:18 Dose: 40 mg Documented by: Admin: 03/06/20 15:57 Dose: 40 mg Documented by: PERFECTO Assessment/Plan Comment:: will increase diet and give laxative if needed, did have a small formed BM this am, will continue current tx plan and plan dc in am if improving use this note as an admission H/P - Mortality Measure Prognosis:: Good
[2020-03-08] MEDS ORDERED: Potassium Chloride Riders 40 MEQ in Premix Bag 1 BAG IV ONE (12:33)
[2020-03-08] MEDS ORDERED: Magnesium Citrate Solution 296 ML Bottle PO ONE ×2 (12:33→13:10)
[2020-03-08] MEDS ORDERED: Ondansetron 4 MG Tab.DIS PO PRN (12:38)
[2020-03-08] MEDS: Enoxaparin 40 MG/0.4 ML Syringe SUBCUT SCH (17:50)
[2020-03-08] MEDS: Pantoprazole 40 MG Vial IVPUSH SCH (17:50)
[2020-03-08] MEDS: Aspirin 81 MG Tab.EC PO SCH (20:22)
[2020-03-09] MEDS: Metoclopramide 10 MG/2 ML SDV IVPUSH PRN ×2 (00:35→07:38)
[2020-03-09] MEDS: Docusate Sodium 100 MG Cap PO SCH ×2 (07:24→07:44)
[2020-03-09] MEDS: Amoxicillin/Clavulanate K 875-125 MG Tab PO SCH (07:43)
[2020-03-09 07:50] VITALS: BP 143/54; PULSE 77
[2020-03-09] MEDS: HYDROCHLOROTHIAZIDE PO SCH (07:50)
[2020-03-09] MEDS: LISINOPRIL PO SCH (07:50)
[2020-03-09] MEDS ORDERED: atorvaSTATin 10 MG Tab PO SCH (08:00)
[2020-03-09] MEDS ORDERED: Calcium Carbonate/Vitamin D3 1250 MG-200 Unit Tab PO SCH (08:00)
[2020-03-09] MEDS ORDERED: Non-Formulary Medication 1 Each (Glucosam/Chondr/Collagn/Hyalur [Glucosamine & Chondroitin PO SCH (08:00)
[2020-03-09] MEDS ORDERED: Multivitamin Tab PO SCH (08:00)
[2020-03-09] MEDS ORDERED: Cholecalciferol (Vitamin D3) 25 MCG Tab PO SCH (08:00)
[2020-03-09] MEDS ORDERED: Metoprolol Succinate 100 MG Tab.ER PO SCH (08:00)
[2020-03-09] MEDS ORDERED: metFORMIN 500 MG Tab PO SCH (08:00)
[2020-03-09] MEDS: NS + KCl 20mEq/L 1,000 ML IV SCH (08:33)
[2020-03-09 09:54] LABS: CHLORIDE,CL 106 mEq/L (98-106); SODIUM,NA 140 mEq/L (136-145)
--- NOTE | 2020-03-09 10:09 | PCM.DCSUM1 ---
Discharge Summary - Hospital Course Free Text/Narrative:: pt was admitted with an ileus, she had some mild hypokalemia and elevated LFT, her labs has improved, she was given a bottle of citrate of magnesium yesterday with excellent results, does not feel distended any longer, feels much better HPI Initial Comments: see attached Diagnosis: Stroke: No Modified [place] Scale: No Symptoms at All Modified [place] Scale Score: 0 - Discharge Data Discharge Date: 03/09/20 Discharge Disposition: Home, Self-Care 01 Condition: Good - Referral to Home Health Primary Care Physician: Luis Sevilla MD - Discharge Diagnosis/Problem(s) (1) Abdominal pain SNOMED Code(s): 75853271 ICD Code: R10.9 - UNSPECIFIED ABDOMINAL PAIN Status: Acute Priority: High Current Visit: Yes Qualifiers: Abdominal location: generalized Qualified Code(s): R10.84 - Generalized abdominal pain (2) Ileus SNOMED Code(s): 296875848 ICD Code: K56.7 - ILEUS, UNSPECIFIED Status: Acute Priority: Medium Current Visit: Yes (3) Elevated LFTs SNOMED Code(s): 780300533, 171938645 ICD Code: R79.89 - OTHER SPECIFIED ABNORMAL FINDINGS OF BLOOD CHEMISTRY Status: Acute Priority: Medium Current Visit: Yes - Patient Instructions Diet: Heart Healthy Diet Activity: As Tolerated Driving: May Drive Today Showering/Bathing: May Shower Notify Provider of: Fever, Increased Pain, Nausea and/or Vomiting - Discharge Plan *PRESCRIPTION DRUG MONITORING PROGRAM REVIEWED*: Not Applicable *COPY OF PRESCRIPTION DRUG MONITORING REPORT IN PATIENT ABDI: Not Applicable Prescriptions/Med Rec: Metoclopramide HCl [Reglan] 10 mg PO TID 5 Days #15 tablet Home Medications: Home Meds Aspirin [Low Dose Aspirin EC] 81 mg PO BEDTIME 09/02/13 [History] Calcium Carb, Citrate/Vit D3 [Calcium + D3 ER Tablet] 1 each PO DAILY 09/02/13 [History] Cholecalciferol (Vitamin D3) [Vitamin D3] 2,000 unit PO DAILY 09/02/13 [History] Glucosam/Chondr/Collagn/Hyalur [Glucosamine & Chondroitin Cap] 1 each PO DAILY 09/02/13 [History] Lisinopril/Hydrochlorothiazide [Lisinopril-Hctz 20-12.5 mg Tab] 0.5 each PO DAILY 09/02/13 [History] Magnesium 200 mg PO DAILY 09/02/13 [History] Metoprolol Succinate [Toprol XL 100mg] 100 mg PO DAILY 09/02/13 [History] Multivitamin [Daily Vitamin] 1 each PO DAILY 09/02/13 [History] Ubidecarenone [Co Q-10] 200 mg PO DAILY 09/02/13 [History] atorvaSTATin Calcium [Atorvastatin Calcium] 10 mg PO DAILY 09/02/13 [History] metFORMIN HCl [Metformin HCl] 500 mg PO DAILY 03/01/20 [History] Amoxicillin/Clavulanate K [Augmentin 875-125 MG] 1 tab PO BID 03/06/20 [History] ondansetron HCL [Ondansetron HCl] 4 mg PO Q4H PRN 03/06/20 [History] Metoclopramide HCl [Reglan] 10 mg PO TID 5 Days #15 tablet 03/09/20 [Rx] Oxygen Therapy Mode: Room Air Patient Handouts: Ileus - Discharge Summary/Plan Comment DC Time >30 min.: No - General Info Date of Service: 03/09/20 Admission Dx/Problem (Free Text: abd pain, ileus, elevated LFT Functional Status: Reports: Tolerating Diet, Ambulating, Urinating - Review of Systems General: Reports: No Symptoms. Denies: Fever, Weakness HEENT: Reports: No Symptoms Pulmonary: Reports: No Symptoms Cardiovascular: Reports: No Symptoms Gastrointestinal: Denies: Abdominal Pain, Constipation, Diarrhea, Nausea, Vomiting Musculoskeletal: Reports: No Symptoms. Denies: Neck Pain, Back Pain Skin: Reports: No Symptoms Neurological: Reports: No Symptoms Psychiatric: Reports: No Symptoms - Patient Data Vitals - Most Recent: Last Vital Signs Temp 37.4 C 03/09/20 08:00 Pulse 77 03/09/20 08:00 Resp 20 03/09/20 08:00 BP 143/54 H 03/09/20 08:00 Pulse Ox 98 03/09/20 08:00 Weight - Most Recent: 81.012 kg I&O - Last 24 hours: Intake & Output 03/08/20 03/09/20 03/09/20 22:59 06:59 14:59 Intake Total 3774 471 2091 Output Total 1000 500 600 Balance 700 -200 640 Lab Results - Last 24 hrs: Laboratory Results - last 24 hr 03/09/20 03/09/20 Range/Units 09:35 09:35 WBC 15.4 H (5.0-10.0) 10^3/uL RBC 4.35 (4.00-5.50) 10^6/uL Hgb 13.2 (12.0-16.0) g/dL Hct 39.1 (37.0-47.0) % MCV 89.9 (82.0-94.0) fL MCH 30.3 (27.0-32.0) pg MCHC 33.8 (33.0-38.0) g/dL RDW Coeff of Loli 13.6 (11.0-15.0) % Plt Count 362 (150-400) 10^3/uL Add Manual Diff Yes Neutrophils % (Manual) 57 (35-85) % Band Neutrophils % 5 (0-5) % Lymphocytes % (Manual) 32 (21-55) % Monocytes % (Manual) 4 (2-12) % Eosinophils % (Manual) 2 (0-5) % Absolute Neutrophils 9.55 H (1.80-7.00) 10^3/uL Lymphocytes # (Manual) 4.93 H (1.00-4.80) 10^3/uL Monocytes # (Manual) 0.62 (0.00-0.80) 10^3/uL Eosinophils # (Manual) 0.31 (0.00-0.45) 10^3/uL Sodium 140 (136-145) mEq/L Potassium 3.6 (3.5-5.0) mEq/L Chloride 106 (98-106) mEq/L Carbon Dioxide 21 (21-32) mmol/L BUN 6 L (7-18) mg/dL Creatinine 0.8 (0.6-1.0) mg/dL Est Cr Clr Drug Dosing 60.56 mL/min Estimated GFR (MDRD) > 60 (>=60) mL/min Glucose 136 H D (75-99) mg/dL Calcium 8.1 L (8.4-10.1) mg/dL Total Bilirubin 0.3 (0.0-1.0) mg/dL AST 57 H (15-37) U/L ALT 113 H (12-78) U/L Alkaline Phosphatase 361 H (46-116) U/L Total Protein 7.1 (6.4-8.2) g/dL Albumin 3.2 L (3.4-5.0) g/dL Med Orders - Current: Current Medications Amoxicillin/Clavulanate Potassium (Augmentin 875 Mg/125 Mg) 1 tab PO BID [facility] Last Admin: 03/09/20 07:43 Dose: 1 tab Documented by: Aspirin (Halfprin) 81 mg PO BEDTIME [facility] Last Admin: 03/08/20 20:22 Dose: 81 mg Documented by: Atorvastatin Calcium (Lipitor) 10 mg PO DAILY [facility] Last Admin: 03/09/20 07:48 Dose: 10 mg Documented by: Calcium Carbonate (Calcium Carbonate/Vitamin D 1250 Mg-200 Unit) 1 tab PO DAILY [facility] Last Admin: 03/09/20 07:44 Dose: 1 tab Documented by: Cholecalciferol (Vitamin D3) 50 mcg PO DAILY [facility] Last Admin: 03/09/20 07:49 Dose: 50 mcg Documented by: Docusate Sodium (Colace) 100 mg PO BID [facility] Last Admin: 03/09/20 07:44 Dose: Not Given Documented by: Enoxaparin Sodium (Lovenox) 40 mg SUBCUT Q24H [facility] Last Admin: 03/08/20 17:50 Dose: 40 mg Documented by: Potassium Chloride/Sodium Chloride (Normal Saline With 20 Meq Kcl) 1,000 mls @ 100 mls/hr IV ASDIRECTED [facility] Last Admin: 03/09/20 08:33 Dose: 100 mls/hr Documented by: Magnesium Oxide (Magnesium Oxide) 250 mg PO DAILY [facility] Last Admin: 03/09/20 07:48 Dose: 250 mg Documented by: Metformin HCl (Glucophage) 500 mg PO DAILY [facility] Last Admin: 03/09/20 07:44 Dose: 500 mg Documented by: Metoclopramide HCl (Reglan) 10 mg IVPUSH Q6H PRN PRN Reason: Nausea Last Admin: 03/09/20 07:38 Dose: 10 mg Documented by: Metoprolol Succinate (Toprol Xl) 100 mg PO DAILY [facility] Last Admin: 03/09/20 07:49 Dose: 100 mg Documented by: Multivitamins/Minerals/Vitamin C (Tab-A-Rick) 1 tab PO DAILY [facility] Last Admin: 03/09/20 07:48 Dose: 1 tab Documented by: Lisinopril/Hydrochlorothiazide 20-12.5 MgOwn Med* * 0.5 each PO DAILY [facility] Last Admin: 03/09/20 07:50 Dose: 0.5 each Documented by: Non-Formulary Medication (Glucosam/Chondr/Collagn/Hyalur [Glucosamine & Chondroitin Cap]) 1 each PO DAILY [facility] Ondansetron HCl (Zofran Odt) 4 mg PO Q4H PRN PRN Reason: Nausea Pantoprazole Sodium (Protonix Iv) 40 mg IVPUSH Q24H [facility] Last Admin: 03/08/20 17:50 Dose: 40 mg Documented by: Discontinued Medications Amoxicillin/Clavulanate Potassium (Augmentin 875 Mg/125 Mg) 1 tab PO BID [facility] Last Admin: 03/07/20 08:54 Dose: Not Given Documented by: Amoxicillin/Clavulanate Potassium (Augmentin 875 Mg/125 Mg) 1 tab PO BID [facility] Stop: 03/10/20 23:59 Last Admin: 03/08/20 07:39 Dose: 1 tab Documented by: Atorvastatin Calcium (Lipitor) 10 mg PO DAILY [facility] Last Admin: 03/07/20 10:13 Dose: Not Given Documented by: Atorvastatin Calcium (Lipitor) 10 mg PO 03/07/20 [facility] Stop: 03/07/20 10:16 Last Admin: 03/07/20 10:13 Dose: 10 mg Documented by: Docusate Sodium (Colace) 100 mg PO BID PRN PRN Reason: Constipation Sodium Chloride (Normal Saline) 1,000 mls @ 125 mls/hr IV ASDIRECTED [facility] Last Admin: 03/07/20 18:22 Dose: 125 mls/hr Documented by: Potassium Chloride 40 meq/ (Premix) 100 mls @ 25 mls/hr IV ONETIME ONE Stop: 03/08/20 16:32 Last Admin: 03/08/20 13:13 Dose: 25 mls/hr Documented by: Magnesium Citrate (Citrate Of Magnesia) 300 ml PO ONETIME ONE Stop: 03/08/20 12:34 Last Admin: 03/08/20 13:39 Dose: Not Given Documented by: Magnesium Citrate (Citrate Of Magnesia) 296 ml PO ONETIME ONE Stop: 03/08/20 13:11 Last Admin: 03/08/20 13:19 Dose: 296 ml Documented by: Metformin HCl (Glucophage) 500 mg PO DAILY [facility] Last Admin: 03/07/20 10:13 Dose: Not Given Documented by: Metformin HCl (Glucophage) 500 mg PO DAILY [facility] Last Admin: 03/08/20 07:39 Dose: 500 mg Documented by: Metoclopramide HCl (Reglan) 10 mg IVPUSH ONETIME ONE Stop: 03/06/20 15:07 Last Admin: 03/06/20 15:11 Dose: 10 mg Documented by: Metoprolol Succinate (Toprol Xl) 100 mg PO DAILY [facility] Last Admin: 03/08/20 07:40 Dose: 100 mg Documented by: - Exam General: Reports: Alert, Oriented, Cooperative, No Acute Distress Neck: Reports: Supple Lungs: Reports: Clear to Auscultation, Normal Respiratory Effort Cardiovascular: Reports: Regular Rate, Regular Rhythm GI/Abdominal Exam: Normal Bowel Sounds, Soft, Non-Tender, No Organomegaly Back Exam: Reports: Normal Inspection, Full Range of Motion Extremities: Normal Inspection, Normal Range of Motion, Non-Tender, Normal Capillary Refill ( ) Skin: Reports: Warm, Dry, Intact Neurological: Reports: No New Focal Deficit, Normal Gait, Normal Speech Psy/Mental Status: Reports: Alert, Normal Affect, Normal Mood
[2020-03-09] MEDS ORDERED: Metoclopramide 10 MG Tab PO STA (10:45)
[2020-03-09] MEDS ORDERED: Metoclopramide 10 MG Tab PO SCH (14:00)
== END 2020-03-09 11:25 | disposition home or self-care (01) | DRG 390 ==
LOC: CC.MS 12:37 → UNDOADMOB 14:07 → CC.MS 14:07 → OBSVTOIN 03-08 12:37
PROVIDERS: ADMIT Family Medicine; ATTEND Family Medicine
DX: K56.7 Ileus, unspecified (principal); R79.89 Other specified abnormal findings of blood chemistry; R74.8 Abnormal levels of other serum enzymes; E87.6 Hypokalemia; H91.90 Unspecified hearing loss, unspecified ear; E78.00 Pure hypercholesterolemia, unspecified; I10 Essential (primary) hypertension; R91.1 Solitary pulmonary nodule; M19.90 Unspecified osteoarthritis, unspecified site; R73.03 Prediabetes; F41.9 Anxiety disorder, unspecified; Z90.2 Acquired absence of lung [part of]; F32.9 Major depressive disorder, single episode, unspecified; E55.9 Vitamin D deficiency, unspecified; L82.0 Inflamed seborrheic keratosis; Z90.710 Acquired absence of both cervix and uterus; Z79.82 Long term (current) use of aspirin; Z79.899 Other long term (current) drug therapy; Z79.84 Long term (current) use of oral hypoglycemic drugs; Z88.1 Allergy status to other antibiotic agents; Z88.2 Allergy status to sulfonamides; Z87.440 Personal history of urinary (tract) infections; Z98.890 Other specified postprocedural states
CPT/HCPCS: 36415; 74019; 76705; 80053; 81001; 82962; 83735; 85025; 85027; 86140; 96360; 96361; 96372; 96374; 96376; A9270-GY; C9113; G0378; J1650; J2765; J3480; J7030

== ENCOUNTER → 2022-11-05 | Day surgery (SDC) | payer MEDICARE, BC ==
[~2022-11-05] MED LIST: Ketamine 200 MG/20 ML MDV ONE; Midazolam 1 MG/ML 2 ML SDV ONE; Propofol 200 MG/20 ML SDV ONE; fentaNYL 50 MCG/ML SDV ONE
[2022-11-05] MEDS: Lactated Ringers 1,000 ML IV SCH (09:00)
[2022-11-05 12:27] VITALS: BP 145/63; PULSE 76
== END ==
LOC: CC.SDS 08:46
PROVIDERS: ATTEND Family Medicine
DX: Z12.11 Encounter for screening for malignant neoplasm of colon (principal); D12.3 Benign neoplasm of transverse colon; K57.30 Diverticulosis of large intestine without perforation or abscess without bleeding; K64.9 Unspecified hemorrhoids; M19.90 Unspecified osteoarthritis, unspecified site; I10 Essential (primary) hypertension; E78.00 Pure hypercholesterolemia, unspecified; F41.9 Anxiety disorder, unspecified; R73.03 Prediabetes; Z88.1 Allergy status to other antibiotic agents; Z79.899 Other long term (current) drug therapy; Z78.0 Asymptomatic menopausal state
CPT/HCPCS: 00812; 88305; J2250; J2704; J3010; J3490; J7120